=== PATIENT | female | born 1960 | race Caucasian/White ===

== ENCOUNTER 2018-08-14 06:59 | Emergency (ER) | payer BC ==
--- NOTE | 2018-08-14 08:01 | EDM.PDOC ---
ED HPI GENERAL MEDICAL PROBLEM - General Chief Complaint: Back Pain or Injury Stated Complaint: BACK PAIN Time Seen by Provider: 08/14/18 07:18 Source of Information: Reports: Patient, RN Notes Reviewed History Limitations: Reports: No Limitations - History of Present Illness INITIAL COMMENTS - FREE TEXT/NARRATIVE: The patient states that she developed low back pain, felt from the bilateral sacroiliac joints, wrapping around to her bilateral inguinal areas, while sitting at work yesterday afternoon. There was no fall or other trauma. She has pain to her lower back when she stands or walks, but also feels cramps in her abdomen if she sits. She states that she does not have tingling or numbness to her thighs, per se, but that they feel cold, circumferentially, worse posteriorly, and the right may be slightly worse than the left. The patient states that she had similar symptoms stemming from a fall onto her buttocks in 2010. She subsequently underwent L4-L5 microdiscectomy 2011, with relief of her symptoms. She suffered the same symptoms again in 2015. She did not seek medical evaluation, and her symptoms resolved on their own after about one week. The patient states that she took 2 tablets of Robaxacet yesterday around 16:30, which may have helped a little bit. Otherwise, she has not taken any other medications for her current symptoms. The patient's PCP is MARIAMA Momin. Lower Back Pain Score (Numeric/FACES): 8 - Related Data Allergies Allergy/AdvReac Type Severity Reaction Status Date / Time No Known Allergies Allergy Verified 08/14/18 07:22 Home Meds: Home Meds Orphenadrine [Norflex] 1 tab PO Q12H PRN #20 tab.er 08/14/18 [Rx] Past Medical History Musculoskeletal History: Reports: Other (See Below) (Herniated intervertebral disc 2010) Psychiatric History: Reports: Depression, Panic Attack - Past Surgical History HEENT Surgical History: Reports: Oral Surgery (wisdom teeth extraction), Tonsillectomy Female Surgical History: Reports: Endometrial Ablation, Tubal Ligation Neurological Surgical History: Reports: Lumbar Spine (L4-L5 microdiscectomy 2011 ) Social & Family History - Family History Family Medical History: Noncontributory - Tobacco Use Smoking Status *Q: Former Smoker Years of Tobacco use: 32 Packs/Tins Daily: 1 Month/Year Tobacco Last Used: Quit 2011 - Alcohol Use Alcohol Use History: Yes Alcohol Use Frequency: Socially - Recreational Drug Use Recreational Drug Use: No - Living Situation & Occupation Living situation: Reports: , with Spouse 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 ED EXAM,LOWER BACK PAIN/INJURY - Physical Exam Exam: See Below Exam Limited By: No Limitations General Appearance: Alert, WD/WN, No Apparent Distress Eye Exam: Bilateral Eye: EOMI, Normal Inspection Ears: Normal External Exam, Hearing Grossly Normal Nose: Normal Inspection Throat/Mouth: Normal Inspection, Normal Lips, Normal Voice, No Airway Compromise Head: Atraumatic, Normocephalic Neck: Normal Inspection, Full Range of Motion Respiratory/Chest: No Respiratory Distress, Lungs Clear, Normal Breath Sounds, No Accessory Muscle Use Cardiovascular: Normal Peripheral Pulses, Regular Rate, Rhythm, No Edema, No Gallop, No JVD, No Murmur, No Rub GI/Abdominal: Normal Bowel Sounds, Soft, Non-Tender, No Organomegaly, No Distention, No Abnormal Bruit, No Mass (Female) Exam: Deferred Rectal (Female) Exam: Deferred Back Exam: Other (There is no visible abnormality to the patient's back, such as swelling, erythema, ecchymosis, or abrasion. There is no tenderness to palpation along the entire thoracic, lumbar, and sacral spinous processes. No tenderness to palpation over either sacroiliac joint, or even to the soft tissue extending laterally from the SI joints and around to the patient's upper hips, where she reports having pain. Straight leg raise is asymptomatic bilaterally up to 75, at which time the patient developed discomfort in her posterior thighs, made worse with forced dorsiflexion. The patient is able to flex the spine to 30, limited by shooting pain in her back. The patient is able to extend the spine to 10, limited by shooting pain in her back. The patient is able to tilt her spine bilaterally to 5-10, limited by shooting pain in her back. Patient is able to twist her spine to 5-10 bilaterally, limited by shooting pain in her back. Unilateral knee bend is fair bilaterally.) . No: CVA Tenderness (L), CVA Tenderness (R) Extremities: Normal Inspection, Normal Range of Motion, Non-Tender, No Pedal Edema, Normal Capillary Refill Neurological: Alert, No Motor/Sensory Deficits, Oriented x 3 Psychiatric: Normal Affect Skin Exam: Warm, Dry, Intact, Normal Color, No Rash Course - Vital Signs Last Recorded V/S: Last Vital Signs Temp 36.9 C 08/14/18 07:22 Pulse 98 08/14/18 07:22 Resp 18 08/14/18 07:22 BP 122/76 08/14/18 07:22 Pulse Ox 100 08/14/18 07:22 - Re-Assessments/Exams Free Text/Narrative Re-Assessment/Exam: 08/14/18 07:53 Based on the patient's history and physical examination, I do not feel that her symptoms are due to a central herniated disc. Straight leg raise is asymptomatic up to about 75 bilaterally, but flexion with standing is limited to only about 30, which is more consistent with a muscle spasm. Similarly, the patient has some symptoms with twisting the spine, but at only 5-10, which is not likely to induce much pressure on a lumbar disc, and she also feels the same symptoms with tilting and extending the spine, which does not impose significant pressure on the disc, but may cause muscle strain. I suspect that the neuropathy that she is sensing is stemming from irritation or inflammation of nerves outside of the spinal canal. I am therefore not recommending steroids at this time. Instead, I am recommending that we switch the patient to a newer generation muscle relaxant, such as Norflex, and an [id number] anti- inflammatory, such as ibuprofen. I will recommend activities, such as swimming and walking. If her symptoms are not improved within the next few days, I would like her to follow-up with her PCP. Departure - Departure Time of Disposition: 07:56 Disposition: Home, Self-Care 01 Condition: Good Clinical Impression: Spasm of muscle of lower back - Discharge Information *PRESCRIPTION DRUG MONITORING PROGRAM REVIEWED*: Not Applicable *COPY OF PRESCRIPTION DRUG MONITORING REPORT IN PATIENT ANTHONY: Not Applicable Referrals: Colleen Brewer PA-C [Primary Care Provider] - Additional Instructions: You were seen in the emergency room for low back pain with a cold sensation to your thighs. Based on your history and physical examination, your pain is most likely due to a muscle spasm, and less likely due to a herniated intervertebral disc. A prescription for the muscle relaxant Norflex has been sent to the [facility], located just south and across [address] from [facility]. Take one tablet of Norflex every 12 hours, starting this morning, Monday, 2018, as prescribed. In addition to Norflex, we also recommend that you take [id number] ibuprofen, 2-3 tablets (400-600 mg) every 8 hours, with food, as needed for discomfort. DO NOT continue to take Robaxacet. As discussed, it is very important that you stay active. Swimming is best, but walking is good as well. Try to avoid flexing and twisting your spine. If your symptoms have not noticeably improved within the next few days, we recommend that you follow-up with your PCP, MARIAMA Momin. If any other problems, please do not hesitate to return to the ER.
== END 2018-08-14 08:07 | disposition home or self-care (01) ==
LOC: JD.ED 06:59
DX: M62.830 Muscle spasm of back (principal); Z98.890 Other specified postprocedural states; Z87.891 Personal history of nicotine dependence
CPT/HCPCS: 99283